=== PATIENT | female | born 1995 | race Caucasian/White ===

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

== ENCOUNTER 2017-05-30 17:23 | Emergency (ER) | payer MEDICAID, OTHER ==
[~2017-05-30] VITALS: Ht 154.9 cm; Wt 57.0 kg
[2017-05-30 23:01] LABS: BASOPHILS % 0.5 % (0.0-2.0); EOSINOPHILS % 0.9 % (0.0-5.0); HEMATOCRIT. 38.4 % (36.0-48.0); HEMOGLOBIN. 12.9 g/dL (12.0-16.0); LYMPHOCYTES % 33.9 % (20.0-50.0); MEAN CORPUSCULAR VOLUME 95.3 fL (81.0-99.0); MONOCYTES % 8.3 % (2.0-8.0); NEUTROPHILS % 56.4 % (40.0-76.0); PLATELET 258 x1000/uL (130-400); RED BLOOD CELL COUNT 4.03 mill/uL (4.2-5.4); RED CELL DISTRIBUTION WIDTH 13.2 % (11.6-14.6)
[2017-05-30 23:10] LABS: CHLORIDE 105 mEq/L (98-107)
[2017-05-31 00:46] VITALS: BP 114/69
== END 2017-05-31 01:19 | disposition home or self-care (01) ==
LOC: ER 17:23
DX: J18.9 Pneumonia, unspecified organism (principal); Z88.0 Allergy status to penicillin
CPT/HCPCS: 36415; 71045; 80048; 81025; 85025; 93005; 99285; Z7610

== ENCOUNTER 2018-10-01 20:11 | Emergency (ER) | payer MEDICAID ==
[~2018-10-01] VITALS: Ht 154.9 cm; Wt 61.0 kg
[2018-10-02] VITALS: BP 120/83
== END 2018-10-02 00:35 | disposition home or self-care (01) ==
LOC: ER 21:14
DX: H66.92 Otitis media, unspecified, left ear (principal); R05 Cough; R09.89 Other specified symptoms and signs involving the circulatory and respiratory systems
CPT/HCPCS: 99283

== ENCOUNTER 2020-04-22 20:50 | Emergency (ER) | payer MEDICAID ==
[~2020-04-22] VITALS: Ht 154.9 cm; Wt 59.0 kg
[2020-04-22 20:52] VITALS: BP 154/108
[2020-04-22] MEDS ORDERED: SODIUM CHLORIDE 0.9% 1,000 ML IV ONE (22:00)
[2020-04-22] MEDS ORDERED: ONDANSETRON HCL 4MG/2ML INJ IV ONE (22:00)
[2020-04-22 22:40] LABS: BASOPHILS % 0.3 % (0.0-2.0); HEMATOCRIT. 39.9 % (36.0-48.0); HEMOGLOBIN. 13.6 g/dL (12.0-16.0); MEAN CORPUSCULAR HEMOGLOBIN 31.8 pg (28.0-32.0); MEAN CORPUSCULAR VOLUME 93.4 fL (81.0-99.0); MEAN PLATELET VOLUME 9.1 fl (7.4-10.4); MONOCYTES % 6.3 % (2.0-8.0); NEUTROPHILS % 71.4 % (40.0-76.0); PLATELET 255 x1000/uL (130-400); RED BLOOD CELL COUNT 4.27 mill/uL (4.2-5.4)
[2020-04-22 22:46] LABS: CHLORIDE 103 mEq/L (98-107)
[2020-04-22 22:53] LABS: CLARITY URINE CLEAR (CLEAR); COLOR URINE YELLOW (YELLOW); KETONES URINE 4+ (NEGATIVE); LEUKOCYTE ESTERASE URINE 1+ (NEGATIVE); NITRITE URINE NEGATIVE (NEGATIVE); OCCULT BLOOD URINE NEGATIVE (NEGATIVE); PROTEIN URINE TRACE (NEGATIVE); SPECIFIC GRAVITY URINE 1.029 (1.005-1.030)
[2020-04-22 23:11] LABS: B-HCG QUANTITATIVE 60338 mIU/mL (<3)
== END 2020-04-22 23:49 | disposition home or self-care (01) ==
LOC: ER 20:50
DX: O21.8 Other vomiting complicating pregnancy (principal); O20.0 Threatened abortion; O23.41 Unspecified infection of urinary tract in pregnancy, first trimester; O26.891 Other specified pregnancy related conditions, first trimester; R03.0 Elevated blood-pressure reading, without diagnosis of hypertension; R00.0 Tachycardia, unspecified; R82.4 Acetonuria; Z3A.01 Less than 8 weeks gestation of pregnancy
CPT/HCPCS: 36415; 76801; 76817; 80053; 81003; 81025; 84702; 85025; 93005; 96361; 96374; 99285; J2405; J7030

== ENCOUNTER 2020-05-03 15:17 | Emergency (ER) | payer MEDICAID ==
[~2020-05-03] VITALS: Ht 154.9 cm; Wt 59.0 kg
[2020-05-03 16:26] VITALS: BP 120/70
== END 2020-05-03 16:10 | disposition home or self-care (01) ==
LOC: ER 15:17
DX: T49.8X1A Poisoning by other topical agents, accidental (unintentional), initial encounter (principal); L23.2 Allergic contact dermatitis due to cosmetics; X58.XXXA Exposure to other specified factors, initial encounter; Y92.098 Other place in other non-institutional residence as the place of occurrence of the external cause
CPT/HCPCS: 99282

== ENCOUNTER 2020-05-05 13:12 | Emergency (ER) | payer MEDICAID ==
[~2020-05-05] VITALS: Ht 154.9 cm; Wt 59.0 kg
[2020-05-05 13:16] VITALS: BP 144/73
== END 2020-05-05 14:13 | disposition home or self-care (01) ==
LOC: ER 13:12
DX: H93.11 Tinnitus, right ear (principal); F41.9 Anxiety disorder, unspecified
CPT/HCPCS: 99281

== ENCOUNTER 2021-03-24 17:54 | Emergency (ER) | payer MEDICAID ==
[~2021-03-24] VITALS: Ht 160 cm; Wt 59.0 kg
[2021-03-24] MEDS ORDERED: ACETAMINOPHEN 325MG TABLET PO STA (19:35)
[2021-03-24] MEDS ORDERED: METOCLOPRAMIDE HCL 10MG/2ML VIAL IV ONE (19:45)
[2021-03-24 20:48] VITALS: BP 121/71
== END 2021-03-24 20:58 | disposition home or self-care (01) ==
LOC: ER 17:54
DX: G43.909 Migraine, unspecified, not intractable, without status migrainosus (principal); G44.89 Other headache syndrome; F12.10 Cannabis abuse, uncomplicated
CPT/HCPCS: 96374; 99283; J2765